=== PATIENT | female | born 2000 ===

== ENCOUNTER 2024-02-22 16:46 | Emergency (ER) | payer OTHER, SELFPAY ==
[2024-02-22 16:55] VITALS: BP 146/96; PULSE 109; RESP 20; TEMP 37.1; O2SAT 100; BMI 28.3
== END 2024-02-22 22:00 | disposition left against medical advice (07) ==
LOC: HO.ED 22:00
PROVIDERS: Emergency Provider Emergency Medicine
DX: R68.84 Jaw pain (principal)
CPT/HCPCS: 99281